=== PATIENT | female | born 1985 | race Caucasian/White ===

== ENCOUNTER 2020-09-24 03:50 | Inpatient (IN) | payer BC ==
[~2020-09-24] VITALS: Ht 165.1 cm; Wt 112.2 kg
[2020-09-24] MEDS ORDERED: CALCIUM CARBONATE 500 MG TAB.CHEW PO PRN ×2 (04:30→20:00)
[2020-09-24] MEDS ORDERED: FENTANYL PF 100 MCG/2ML IV PRN (04:30)
[2020-09-24] MEDS ORDERED: ALUMINUM/MAG/SIMETHICONE 30 ML UDC PO PRN (04:30)
[2020-09-24] MEDS ORDERED: OXYTOCIN 30U/ 0.9% NaCL 500ML 500 ML IV ONE (04:30)
[2020-09-24] MEDS ORDERED: TERBUTALINE 1 MG/ML, 1ML IVPush PRN (04:30)
[2020-09-24] MEDS ORDERED: ONDANSETRON 2MG/ML, 2ML IVPush PRN (04:30)
[2020-09-24] MEDS ORDERED: TERBUTALINE 1 MG/ML, 1ML SQ PRN (04:30)
[2020-09-24] MEDS: D5%-LACTATED RINGERS 1,000 ML IV SCH ×3 (04:30→20:30)
[2020-09-24] MEDS ORDERED: FENTANYL PF 100 MCG/2ML IVPush PRN (04:30)
[2020-09-24] MEDS ORDERED: NEWBORN KIT ONE (04:35)
[2020-09-24] MEDS ORDERED: MISOPROSTOL 200 MCG TABLET ONE (04:35)
[2020-09-24] MEDS ORDERED: OXYTOCIN 30U/ 0.9% NaCL 500ML 500 ML ONE ×2 (04:35→21:10)
[2020-09-24] MEDS ORDERED: PLEASE ENTER HEIGHT AND WEIGHT MC SCH (05:00)
[2020-09-24 05:33] LABS: BASOPHILS % (AUTO) 0 % (0-1); EOSINOPHILS % (AUTO) 1 % (1-7); LYMPHOCYTES % (AUTO) 17 % (22-44); MEAN CORPUSCULAR HEMOGLOBIN 30.4 pg (27.0-34.8); MEAN PLATELET VOLUME 9.9 fL (7.4-10.4); MONOCYTES % (AUTO) 6 % (2-9); NEUTROPHILS % (AUTO) 76 % (42-75); PLATELET COUNT 181 x10^3/uL (130-400); RED BLOOD COUNT 4.39 x10^6/uL (3.82-5.3); RED CELL DISTRIBUTION WIDTH 14.1 % (9.6-15.2)
[2020-09-24 05:36] LABS: MD NO
[2020-09-24 05:52] LABS: ALANINE AMINOTRANSFERASE 26 U/L (12-78); ALBUMIN 2.6 g/dL (3.4-5.0); ANION GAP 10 mmol/L (5-15); CALCIUM 8.9 mg/dL (8.5-10.1); CHLORIDE 108 mmol/L (98-107); CREATININE 0.69 mg/dL (0.55-1.02)
[2020-09-24 05:54] LABS: ALKALINE PHOSPHATASE 165 U/L (45-117); BILIRUBIN,TOTAL 0.3 mg/dL (0.2-1.0); TOTAL PROTEIN 6.8 g/dL (6.4-8.2)
[2020-09-24 06:23] LABS: MICROSCOPIC INDICATED
[2020-09-24] MEDS ORDERED: LABETALOL 5MG/ML, 20ML IVPush PRN ×3 (06:30)
[2020-09-24] MEDS ORDERED: hydrALAzine 20 MG/ML, 1ML IVPush ONE (06:30)
[2020-09-24 07:08] VITALS: BP 174/73
[2020-09-24] MEDS ORDERED: LABETALOL 5MG/ML, 20ML ONE (07:11)
[2020-09-24] MEDS ORDERED: OXYTOCIN 30U/ 0.9% NaCL 500ML 500 ML IV PRN (07:30)
[2020-09-24 07:31] VITALS: BP 134/71
[2020-09-24] MEDS ORDERED: PREN1TAB60 PO (07:31)
[2020-09-24] MEDS ORDERED: ASPI-515 PO (07:32)
[2020-09-24] MEDS: LACTATED RINGERS 1,000 ML IV SCH ×3 (12:22→20:30)
[2020-09-24] MEDS ORDERED: FENTANYL/BUPIV./NS/PF 250 ML EPIDCONT SCH ×2 (12:30→14:00)
[2020-09-24] MEDS ORDERED: FENTANYL PF 500 MCG, BUPIVACAINE/PF 0.5%, 30ML 62.5 ML in SODIUM CHLORIDE 0.9% 177.5 ML EPIDCONT SCH (13:00)
[2020-09-24] MEDS ORDERED: BUPIVACAINE 0.25% ONE (13:27)
[2020-09-24] MEDS ORDERED: LACTATED RINGERS 1,000 ML IV SCH (14:00)
[2020-09-24] MEDS ORDERED: LACTATED RINGERS 1,000 ML IVBOLUS PRN (14:00)
[2020-09-24] MEDS ORDERED: EPHEDRINE 50 MG/ML, 1ML IVPush PRN (14:00)
[2020-09-24] MEDS ORDERED: ONDANSETRON 2MG/ML, 2ML IV PRN (20:00)
[2020-09-24] MEDS ORDERED: DOCUSATE 100 MG CAPSULE PO PRN (20:00)
[2020-09-24] MEDS ORDERED: CARBOPROST TROMETHAMINE 250 MCG/ML, 1ML IM PRN (20:00)
[2020-09-24] MEDS ORDERED: HYDROcodone/APAP 5/325 TABLET PO PRN ×2 (20:00)
[2020-09-24] MEDS: OXYTOCIN 30U/ 0.9% NaCL 500ML 500 ML IV SCH (20:00)
[2020-09-24] MEDS ORDERED: ACETAMINOPHEN 325 MG TABLET PO PRN (20:00)
[2020-09-24] MEDS ORDERED: MISOPROSTOL 200 MCG TABLET PR PRN (20:00)
[2020-09-24] MEDS ORDERED: SIMETHICONE 80 MG CHEW TAB PO PRN (20:00)
[2020-09-24] MEDS ORDERED: LABETALOL 5MG/ML, 20ML IVPush ONE (20:30)
[2020-09-24 21:35] VITALS: BP 159/90
[2020-09-24 22:15] VITALS: BP 148/80
[2020-09-25 01:30] VITALS: BP 134/84
[2020-09-25 03:58] LABS: BASOPHILS % (AUTO) 0 % (0-1); EOSINOPHILS % (AUTO) 0 % (1-7); LYMPHOCYTES % (AUTO) 12 % (22-44); MD NO; MEAN CORPUSCULAR HEMOGLOBIN 30.1 pg (27.0-34.8); MEAN CORPUSCULAR HGB CONC 33.6 g/dL (32.4-35.8); MEAN PLATELET VOLUME 9.7 fL (7.4-10.4); MONOCYTES % (AUTO) 6 % (2-9); NEUTROPHILS % (AUTO) 81 % (42-75); PLATELET COUNT 164 x10^3/uL (130-400); RED BLOOD COUNT 4.01 x10^6/uL (3.82-5.3); RED CELL DISTRIBUTION WIDTH 14.3 % (9.6-15.2)
[2020-09-25] MEDS: LACTATED RINGERS 1,000 ML IV SCH (04:30)
[2020-09-25 04:50] VITALS: BP 145/87
[2020-09-25] MEDS: OXYTOCIN 30U/ 0.9% NaCL 500ML 500 ML IV SCH (06:00)
[2020-09-25 07:50] VITALS: BP 140/84
[2020-09-25] MEDS: IBUPROFEN 600 MG TABLET PO PRN ×2 (08:38→14:31)
[2020-09-25] MEDS ORDERED: PRENATAL VIT/IRON/FA 1 EACH TABLET PO SCH (09:00)
[2020-09-25 12:15] VITALS: BP 128/85
[2020-09-25 16:45] VITALS: BP 142/86
== END 2020-09-25 19:15 | disposition home or self-care (01) | DRG 807 ==
LOC: LDOP 03:50 → LDIP 04:23 → 2NW 21:31
PROVIDERS: ADMIT Obstetrics & Gynecology; ATTEND Obstetrics & Gynecology
PROC: 10E0XZZ Delivery of Products of Conception, External Approach (ICD-10-PCS; principal; 2020-09-24)
PROC: 3E0R3BZ Introduction of Anesthetic Agent into Spinal Canal, Percutaneous Approach (ICD-10-PCS; 2020-09-24)
PROC: 00HU33Z Insertion of Infusion Device into Spinal Canal, Percutaneous Approach (ICD-10-PCS; 2020-09-24)
DX: O24.420 Gestational diabetes mellitus in childbirth, diet controlled (principal); Z37.0 Single live birth; Z3A.39 39 weeks gestation of pregnancy; Z20.828 Contact with and (suspected) exposure to other viral communicable diseases; Z88.8 Allergy status to other drugs, medicaments and biological substances; Z91.040 Latex allergy status; Z91.018 Allergy to other foods
CPT/HCPCS: 36415; 80053; 81001; 82570; 82962; 84156; 85025; 86592; 86850; 86900; 87635; 89060; G0378; J2590; J7120; Q0114

== ENCOUNTER 2021-05-17 17:22 | Emergency (ER) | payer BC ==
[~2021-05-17] VITALS: Ht 165.1 cm; Wt 114.7 kg
[~2021-05-17 17:22] MED LIST: ASPI-963 PO; PREN1TAB60 PO
--- NOTE | 2021-05-17 19:04 | NUR ---
pt presents to ed with c/o migraine, n/v x3 weeks. pt states high BP, no hx htn. pt a&o, resps even and unlabored, nadn. ermd Shane at bedside for eval.
[2021-05-17] MEDS ORDERED: LABETALOL 5MG/ML, 20ML ONE (19:18)
[2021-05-17 19:19] LABS: BASOPHILS % (AUTO) 1 % (0-1); EOSINOPHILS % (AUTO) 1 % (1-7); LYMPHOCYTES % (AUTO) 27 % (22-44); MEAN CORPUSCULAR HGB CONC 33.9 g/dL (32.4-35.8); MEAN PLATELET VOLUME 8.5 fL (7.4-10.4); MONOCYTES % (AUTO) 5 % (2-9); NEUTROPHILS % (AUTO) 66 % (42-75); PLATELET COUNT 233 x10^3/uL (130-400); RED BLOOD COUNT 4.77 x10^6/uL (3.82-5.3); RED CELL DISTRIBUTION WIDTH 14.1 % (9.6-15.2)
[2021-05-17 19:26] LABS: ALBUMIN 3.8 g/dL (3.4-5.0); ANION GAP 7 mmol/L (5-15); CALCIUM 8.5 mg/dL (8.5-10.1); CHLORIDE 105 mmol/L (98-107)
[2021-05-17] MEDS ORDERED: LABETALOL 5MG/ML, 20ML IVPush ONE ×2 (19:30→20:30)
[2021-05-17 19:33] LABS: ALANINE AMINOTRANSFERASE 22 U/L (12-78); ALKALINE PHOSPHATASE 91 U/L (45-117); BILIRUBIN,TOTAL 0.3 mg/dL (0.2-1.0); CREATININE 0.88 mg/dL (0.55-1.02); TOTAL PROTEIN 7.9 g/dL (6.4-8.2)
--- NOTE | 2021-05-17 19:47 | NUR ---
PIV placed, pt medicated per order, tolerated well. pt a&o, resps even and unlabored, vss, nadn.
[2021-05-17 20:22] VITALS: BP 153/75
--- NOTE | 2021-05-17 21:06 | NUR ---
pt educated on dc, verbalized undertsanding, ambulatoryt o dc desk with steady gait.
== END 2021-05-17 21:09 | disposition home or self-care (01) ==
LOC: ED 21:03
DX: G43.909 Migraine, unspecified, not intractable, without status migrainosus (principal); I10 Essential (primary) hypertension; R42 Dizziness and giddiness; R11.2 Nausea with vomiting, unspecified
CPT/HCPCS: 36415; 70450; 71045; 80053; 84703; 85025; 93005; 96374